=== PATIENT | female | born 1995 | race Caucasian/White ===

== ENCOUNTER 2017-08-12 21:46 | Inpatient (IN) ==
[2017-08-12] MEDS ORDERED: METOCLOPRAMIDE 10 MG/2 ML VIAL IV STA (22:14)
[2017-08-12] MEDS ORDERED: ACETAMINOPHEN/CODEINE 120-12 MG/5 ML 12.5 ML UDCUP PO STA (22:14)
[2017-08-12] MEDS ORDERED: PHENYTOIN ER 100 MG CAPSULE PO STA (22:14)
[2017-08-12] MEDS ORDERED: SUMAtriptan 6 MG/0.5 ML VIAL SUBCUT STA (22:14)
[2017-08-12] MEDS ORDERED: ONDANSETRON 4 MG/2 ML VIAL IV STA (22:14)
[2017-08-12] MEDS ORDERED: SUMAtriptan 6 MG/0.5 ML VIAL SUBCUT ONE (22:27)
[2017-08-12] MEDS ORDERED: PHENYTOIN ER 100 MG CAPSULE PO ONE (22:28)
[2017-08-12] MEDS ORDERED: ONDANSETRON 4 MG/2 ML VIAL ONE (22:28)
[2017-08-12] MEDS ORDERED: levETIRAcetam 500 MG/5 ML VIAL IV ONE (22:28)
[2017-08-12] MEDS ORDERED: ACETAMINOPHEN/CODEINE 120-12 MG/5 ML 12.5 ML UDCUP ONE (22:28)
[2017-08-12 23:08] LABS: Basophils # 0.1 10*3/uL (0.0-0.2); Basophils % 1.1 % (0.0-0.8); Eosinophils % 0.9 % (0.00-10.9); Hematocrit 38.5 VOL% (35.7-47.0); Immature Granulocytes % 0.2 %; Immature Granulocytes Absolute 0.01 #; Lymphocytes # 1.6 10*3/uL (1.4-4.0); Lymphocytes % 34.7 % (21.3-54.2); Mean Corpuscular HGB Conc 33.8 GM/DL (32-36); Mean Corpuscular Hemoglobin 30 PG (27-34); Mean Corpuscular Volume 90.2 FL (87-102); Mean Platelet Volume 9.5 FL (9.6-12.0); Monocytes # 0.2 10*3/uL (0.11-0.8); Monocytes % 5.1 % (1.7-12.7); Neutrophils # 2.6 10*3/uL (1.4-7.4); Platelet Count 202 T/CUMM (130-400); Red Blood Count 4.27 MC/CUMM (3.8-5.5); Red Cell Distribution Width 12.6 % (9.3-17.3); White Blood Count 4.5 T/CUMM (4-12)
[2017-08-12 23:16] LABS: PT Patient Result 10.5 SECS; Partial Thromboplastin Time 24.8 SECS (0-40)
[2017-08-12 23:40] LABS: Alanine Aminotransferase 21 U/L (13-56); Albumin 4.1 G/DL (3.4-5.0); Alkaline Phosphatase 93 U/L (45-117); Aspartate Amino Transferase 20 U/L (0-37); Bilirubin,Total < 0.39 MG/DL (0.2-1.0); Blood Urea Nitrogen 13 MG/DL (7-18); Calcium 8.4 MG/DL (8.5-10.1); Glucose 92 MG/DL (74-106); Osmolality,Calculated 280.3 MOS/KG (273-304); Potassium 3.4 MMOL/L (3.5-5.1); Sodium 141 MMOL/L (136-145)
[2017-08-13] MEDS ORDERED: METOCLOPRAMIDE 10 MG/2 ML VIAL ONE (00:19)
[2017-08-13] MEDS: SODIUM CHLORIDE 0.9% 1,000 ML IV SCH ×2 (01:30→16:35)
[2017-08-13] MEDS ORDERED: LORazepam 2 MG/1 ML VIAL IV PRN (01:45)
[2017-08-13 02:31] LABS: Basophils # 0.1 10*3/uL (0.0-0.2); Eosinophils # 0.1 10*3/uL (0.0-0.87); Hematocrit 34.3 VOL% (35.7-47.0); Hemoglobin 11.7 GM/DL (12.0-16.0); Immature Granulocytes % 0.2 %; Immature Granulocytes Absolute 0.01 #; Lymphocytes # 2.6 10*3/uL (1.4-4.0); Lymphocytes % 49.4 % (21.3-54.2); Mean Corpuscular HGB Conc 34.1 GM/DL (32-36); Mean Corpuscular Hemoglobin 30 PG (27-34); Mean Corpuscular Volume 88.2 FL (87-102); Mean Platelet Volume 9.4 FL (9.6-12.0); Monocytes # 0.3 10*3/uL (0.11-0.8); Monocytes % 5.3 % (1.7-12.7); Neutrophils # 2.3 10*3/uL (1.4-7.4); Neutrophils % 43.1 % (38.7-73.9); Platelet Count 202 T/CUMM (130-400); Red Blood Count 3.89 MC/CUMM (3.8-5.5); Red Cell Distribution Width 12.6 % (9.3-17.3); White Blood Count 5.3 T/CUMM (4-12)
[2017-08-13 03:02] LABS: Calcium 7.8 MG/DL (8.5-10.1); Osmolality,Calculated 277.4 MOS/KG (273-304); Potassium 3.4 MMOL/L (3.5-5.1)
[2017-08-13] MEDS ORDERED: ACETAMINOPHEN 325 MG TABLET PO PRN (08:20)
[2017-08-13] MEDS: BISACODYL 5 MG TABLET PO PRN (08:49)
[2017-08-13] MEDS: DOCUSATE SODIUM 100 MG CAPSULE PO SCH ×2 (08:49→21:00)
[2017-08-13] MEDS ORDERED: POTASSIUM CHLORIDE 20 MEQ TABLET PO ONE (10:26)
[2017-08-13] MEDS: levETIRAcetam 500 MG TABLET PO SCH ×2 (10:41→21:00)
[2017-08-13] MEDS: TOPIRAMATE 25 MG TABLET PO SCH ×2 (10:41→21:00)
[2017-08-14] MEDS: SODIUM CHLORIDE 0.9% 1,000 ML IV SCH ×2 (03:00→11:07)
[2017-08-14] MEDS ORDERED: PROMETHAZINE 25 MG/1 ML VIAL IM PRN (05:36)
[2017-08-14 06:07] LABS: Calcium 7.5 MG/DL (8.5-10.1); Osmolality,Calculated 282.8 MOS/KG (273-304)
[2017-08-14] MEDS: levETIRAcetam 250 MG TABLET PO SCH ×2 (09:03→20:38)
[2017-08-14] MEDS: DOCUSATE SODIUM 100 MG CAPSULE PO SCH ×2 (09:03→20:38)
[2017-08-14] MEDS: LACTULOSE 20 GM/30 ML UDCUP PO SCH ×2 (10:31→20:38)
[2017-08-15] MEDS: SODIUM CHLORIDE 0.9% 1,000 ML IV SCH ×2 (00:49→15:50)
[2017-08-15] MEDS: LACTULOSE 20 GM/30 ML UDCUP PO SCH ×2 (08:49→21:21)
[2017-08-15] MEDS: KETOROLAC 10 MG TABLET PO PRN ×2 (08:49→18:41)
[2017-08-15] MEDS: DOCUSATE SODIUM 100 MG CAPSULE PO SCH ×2 (08:49→21:20)
[2017-08-15] MEDS: levETIRAcetam 250 MG TABLET PO SCH ×2 (08:49→21:20)
[2017-08-16] MEDS: SODIUM CHLORIDE 0.9% 1,000 ML IV SCH ×2 (04:08→13:38)
[2017-08-16] MEDS: DOCUSATE SODIUM 100 MG CAPSULE PO SCH (09:24)
[2017-08-16] MEDS: LACTULOSE 20 GM/30 ML UDCUP PO SCH (09:24)
[2017-08-16] MEDS: levETIRAcetam 250 MG TABLET PO SCH (09:24)
[2017-08-16] MEDS: BISACODYL 5 MG TABLET PO PRN (09:29)
[2017-08-16 12:41] VITALS: BP 128/65
== END 2017-08-16 13:10 | disposition home or self-care (01) | DRG 101 ==
LOC: N.ED 21:46 → N.EDINP 08-13 00:27 → SUATTDRO 08-13 00:27 → N.TELES 08-13 01:16 → N.4E 08-14 11:25
PROVIDERS: ADMIT Family Medicine; ATTEND Internal Medicine

== ENCOUNTER 2017-09-23 13:53 | Inpatient (IN) ==
[2017-09-23] MEDS ORDERED: ONDANSETRON 4 MG/2 ML VIAL IV STA (14:16)
[2017-09-23] MEDS ORDERED: SODIUM CHLORIDE 0.9% 500 ML IV STA (14:16)
[2017-09-23 15:21] LABS: Basophils # 0.1 10*3/uL (0.0-0.2); Basophils % 0.6 % (0.0-0.8); Eosinophils % 0.3 % (0.00-10.9); Hematocrit 39.2 VOL% (35.7-47.0); Immature Granulocytes % 0.5 %; Immature Granulocytes Absolute 0.04 #; Lymphocytes # 1.4 10*3/uL (1.4-4.0); Lymphocytes % 17.8 % (21.3-54.2); Mean Corpuscular HGB Conc 33.2 GM/DL (32-36); Mean Corpuscular Hemoglobin 30 PG (27-34); Mean Corpuscular Volume 91.4 FL (87-102); Mean Platelet Volume 9.2 FL (9.6-12.0); Monocytes # 0.4 10*3/uL (0.11-0.8); Monocytes % 5.3 % (1.7-12.7); Neutrophils # 6.1 10*3/uL (1.4-7.4); Neutrophils % 75.5 % (38.7-73.9); Platelet Count 199 T/CUMM (130-400); Red Blood Count 4.29 MC/CUMM (3.8-5.5); Red Cell Distribution Width 12.5 % (9.3-17.3)
[2017-09-23 15:39] LABS: Alanine Aminotransferase 34 U/L (13-56); Albumin 3.1 G/DL (3.4-5.0); Alkaline Phosphatase 103 U/L (45-117); Aspartate Amino Transferase 16 U/L (0-37); Bilirubin,Total < 0.39 MG/DL (0.2-1.0); Calcium 7.8 MG/DL (8.5-10.1); Total Protein 6.4 G/DL (6.4-8.3)
[2017-09-23 15:40] LABS: Barbiturates Screen,Urine Negative (Negative); Benzodiazepines Screen,Urine Negative (Negative); Cannabinoid Screen,Urine Negative (Negative); Opiate Screen,Urine Negative (Negative); Phencyclidine Screen,Urine Negative (Negative)
[2017-09-23 15:40] LABS: Blood Urea Nitrogen 9 MG/DL (7-18); Glucose 139 MG/DL (74-106); Osmolality,Calculated 279.4 MOS/KG (273-304); Potassium 3.7 MMOL/L (3.5-5.1); Sodium 140 MMOL/L (136-145)
[2017-09-23] MEDS ORDERED: SODIUM CHLORIDE 0.9% 1,000 ML IV SCH (17:00)
[2017-09-23] MEDS ORDERED: SODIUM CHLORIDE 0.9% 1,000 ML IV ONE (17:48)
[2017-09-23] MEDS: ONDANSETRON 4 MG/2 ML VIAL IV PRN (18:17)
[2017-09-23] MEDS: PANTOPRAZOLE 40 MG TABLET PO SCH (19:22)
[2017-09-23] MEDS: ACETAMINOPHEN 325 MG TABLET PO PRN (19:22)
[2017-09-23] MEDS: LORazepam 2 MG/1 ML VIAL IV PRN (19:47)
[2017-09-23] MEDS: SODIUM CHLORIDE 0.9% 1,000 ML IV SCH (20:32)
[2017-09-23] MEDS ORDERED: NON-FORMULARY MEDICATION (Levetiracetam [Keppra] 750 MG) PO SCH (21:00)
[2017-09-24] MEDS: ACETAMINOPHEN 325 MG TABLET PO PRN ×2 (04:31→20:52)
[2017-09-24] MEDS: SODIUM CHLORIDE 0.9% 1,000 ML IV SCH (04:37)
[2017-09-24 05:40] LABS: Basophils % 0.7 % (0.0-0.8); Eosinophils # 0.1 10*3/uL (0.0-0.87); Eosinophils % 1.2 % (0.00-10.9); Hematocrit 36.2 VOL% (35.7-47.0); Hemoglobin 12.2 GM/DL (12.0-16.0); Immature Granulocytes % 0.5 %; Immature Granulocytes Absolute 0.02 #; Lymphocytes # 1.8 10*3/uL (1.4-4.0); Lymphocytes % 43.7 % (21.3-54.2); Mean Corpuscular HGB Conc 33.7 GM/DL (32-36); Mean Corpuscular Hemoglobin 30 PG (27-34); Mean Corpuscular Volume 89.8 FL (87-102); Mean Platelet Volume 9.2 FL (9.6-12.0); Monocytes # 0.3 10*3/uL (0.11-0.8); Monocytes % 6.7 % (1.7-12.7); Neutrophils # 1.9 10*3/uL (1.4-7.4); Neutrophils % 47.2 % (38.7-73.9); Platelet Count 185 T/CUMM (130-400); Red Blood Count 4.03 MC/CUMM (3.8-5.5); Red Cell Distribution Width 12.5 % (9.3-17.3)
[2017-09-24 06:06] LABS: Calcium 7.6 MG/DL (8.5-10.1); Potassium 4.3 MMOL/L (3.5-5.1)
[2017-09-24] MEDS ORDERED: TOPIRAMATE 25 MG TABLET PO SCH (09:00)
[2017-09-24] MEDS: LORazepam 2 MG/1 ML VIAL IV PRN (09:06)
[2017-09-24] MEDS: PANTOPRAZOLE 40 MG TABLET PO SCH (11:15)
[2017-09-24] MEDS: levETIRAcetam 500 MG TABLET PO SCH (20:52)
[2017-09-25 06:13] LABS: Basophils % 0.6 % (0.0-0.8); Eosinophils # 0.1 10*3/uL (0.0-0.87); Eosinophils % 1.7 % (0.00-10.9); Hematocrit 33.6 VOL% (35.7-47.0); Hemoglobin 11.5 GM/DL (12.0-16.0); Immature Granulocytes % 0.4 %; Immature Granulocytes Absolute 0.02 #; Lymphocytes # 1.8 10*3/uL (1.4-4.0); Lymphocytes % 33.6 % (21.3-54.2); Mean Corpuscular HGB Conc 34.2 GM/DL (32-36); Mean Corpuscular Hemoglobin 30 PG (27-34); Mean Corpuscular Volume 88.4 FL (87-102); Mean Platelet Volume 9.1 FL (9.6-12.0); Monocytes # 0.3 10*3/uL (0.11-0.8); Neutrophils # 3.1 10*3/uL (1.4-7.4); Neutrophils % 57.7 % (38.7-73.9); Platelet Count 190 T/CUMM (130-400); Red Cell Distribution Width 12.6 % (9.3-17.3); White Blood Count 5.3 T/CUMM (4-12)
[2017-09-25 06:50] LABS: Albumin 2.8 G/DL (3.4-5.0); Bilirubin,Total 0.5 MG/DL (0.2-1.0); Osmolality,Calculated 279.3 MOS/KG (273-304); Potassium 3.6 MMOL/L (3.5-5.1); Total Protein 5.6 G/DL (6.4-8.3)
[2017-09-25] MEDS: levETIRAcetam 500 MG TABLET PO SCH ×2 (10:29→21:39)
[2017-09-25] MEDS: PANTOPRAZOLE 40 MG TABLET PO SCH (10:30)
[2017-09-25] MEDS: ACETAMINOPHEN 325 MG TABLET PO PRN (11:24)
[2017-09-25] MEDS ORDERED: LORazepam 2 MG/1 ML VIAL IV ONE (12:25)
[2017-09-25] MEDS: AMOXICILLIN/CLAV 875 MG TABLET PO SCH ×2 (16:12→21:39)
[2017-09-25] MEDS: SODIUM CHLORIDE 0.9% 1,000 ML IV SCH ×2 (16:19→21:41)
[2017-09-26] MEDS: PANTOPRAZOLE 40 MG TABLET PO SCH (10:54)
[2017-09-26] MEDS: AMOXICILLIN/CLAV 875 MG TABLET PO SCH ×2 (10:54→21:05)
[2017-09-26] MEDS: levETIRAcetam 500 MG TABLET PO SCH ×2 (10:54→21:05)
[2017-09-26] MEDS: THIAMINE INJ 100 MG, FOLIC ACID INJ 1 MG, MAGNESIUM SULF INJ 2 GM, MULTIVITAMIN INJ 10 ... IV SCH (10:57)
[2017-09-26 11:44] LABS: Barbiturates Screen,Urine Negative (Negative); Benzodiazepines Screen,Urine Negative (Negative); Cannabinoid Screen,Urine Negative (Negative); Opiate Screen,Urine Negative (Negative); Phencyclidine Screen,Urine Negative (Negative)
[2017-09-26] MEDS: SODIUM CHLORIDE 0.9% 1,000 ML IV SCH (12:17)
[2017-09-26] MEDS: ACETAMINOPHEN 325 MG TABLET PO PRN (12:50)
[2017-09-27] MEDS: SODIUM CHLORIDE 0.9% 1,000 ML IV SCH ×2 (06:22→21:02)
[2017-09-27] MEDS: ONDANSETRON 4 MG/2 ML VIAL IV PRN (08:33)
[2017-09-27] MEDS: levETIRAcetam 500 MG TABLET PO SCH ×2 (10:19→21:03)
[2017-09-27] MEDS: PANTOPRAZOLE 40 MG TABLET PO SCH (10:20)
[2017-09-27] MEDS: AMOXICILLIN/CLAV 875 MG TABLET PO SCH ×2 (10:20→21:03)
[2017-09-27] MEDS: THIAMINE INJ 100 MG, FOLIC ACID INJ 1 MG, MAGNESIUM SULF INJ 2 GM, MULTIVITAMIN INJ 10 ... IV SCH (10:49)
[2017-09-27] MEDS: ACETAMINOPHEN 325 MG TABLET PO PRN (21:12)
[2017-09-28] MEDS: ACETAMINOPHEN 325 MG TABLET PO PRN ×2 (05:47→20:52)
[2017-09-28] MEDS: SODIUM CHLORIDE 0.9% 1,000 ML IV SCH ×3 (07:47→20:39)
[2017-09-28] MEDS: PANTOPRAZOLE 40 MG TABLET PO SCH (09:04)
[2017-09-28] MEDS: levETIRAcetam 500 MG TABLET PO SCH ×2 (09:04→20:29)
[2017-09-28] MEDS: AMOXICILLIN/CLAV 875 MG TABLET PO SCH ×2 (09:04→20:29)
[2017-09-28] MEDS: THIAMINE INJ 100 MG, FOLIC ACID INJ 1 MG, MAGNESIUM SULF INJ 2 GM, MULTIVITAMIN INJ 10 ... IV SCH (09:37)
[2017-09-28] MEDS: LACTULOSE 20 GM/30 ML UDCUP PO PRN (15:01)
[2017-09-29 05:30] LABS: Basophils % 0.6 % (0.0-0.8); Eosinophils # 0.1 10*3/uL (0.0-0.87); Eosinophils % 2.1 % (0.00-10.9); Hematocrit 35.7 VOL% (35.7-47.0); Hemoglobin 11.8 GM/DL (12.0-16.0); Immature Granulocytes % 0.4 %; Immature Granulocytes Absolute 0.02 #; Lymphocytes # 1.9 10*3/uL (1.4-4.0); Lymphocytes % 36.7 % (21.3-54.2); Mean Corpuscular HGB Conc 33.1 GM/DL (32-36); Mean Corpuscular Hemoglobin 30 PG (27-34); Mean Corpuscular Volume 91.1 FL (87-102); Mean Platelet Volume 9.1 FL (9.6-12.0); Monocytes # 0.3 10*3/uL (0.11-0.8); Monocytes % 6.2 % (1.7-12.7); Neutrophils # 2.8 10*3/uL (1.4-7.4); Platelet Count 204 T/CUMM (130-400); Red Blood Count 3.92 MC/CUMM (3.8-5.5); Red Cell Distribution Width 12.6 % (9.3-17.3); White Blood Count 5.2 T/CUMM (4-12)
[2017-09-29 05:57] LABS: Calcium 7.7 MG/DL (8.5-10.1); Osmolality,Calculated 276.4 MOS/KG (273-304); Potassium 3.8 MMOL/L (3.5-5.1)
[2017-09-29] MEDS: PANTOPRAZOLE 40 MG TABLET PO SCH (08:26)
[2017-09-29] MEDS: levETIRAcetam 500 MG TABLET PO SCH ×2 (08:26→20:02)
[2017-09-29] MEDS: AMOXICILLIN/CLAV 875 MG TABLET PO SCH ×2 (08:26→20:02)
[2017-09-29] MEDS: THIAMINE INJ 100 MG, FOLIC ACID INJ 1 MG, MAGNESIUM SULF INJ 2 GM, MULTIVITAMIN INJ 10 ... IV SCH (10:11)
[2017-09-29] MEDS: LACTULOSE 20 GM/30 ML UDCUP PO PRN (20:05)
[2017-09-30] MEDS: SODIUM CHLORIDE 0.9% 1,000 ML IV SCH ×2 (06:16→17:58)
[2017-09-30] MEDS: AMOXICILLIN/CLAV 875 MG TABLET PO SCH (09:25)
[2017-09-30] MEDS: levETIRAcetam 500 MG TABLET PO SCH (09:25)
[2017-09-30] MEDS: PANTOPRAZOLE 40 MG TABLET PO SCH (09:25)
[2017-09-30 15:57] VITALS: BP 108/64
[2017-10-01 21:16] LABS: Phenytoin Free Serum 2.7 mcg/mL (1.0 - 2.0); Phenytoin Total Serum (MAYO) 26.2 mcg/mL
== END 2017-09-30 18:41 | disposition home or self-care (01) | DRG 101 ==
LOC: EDUNIT# → EDBD → N.ED 13:53 → N.EDINP 16:43 → SUATTDRO 16:44 → N.EDINP 18:01 → N.4E 18:28 → N.CC 09-27 08:56
PROVIDERS: ADMIT Internal Medicine; ATTEND Internal Medicine Infectious Disease